=== PATIENT | female | born 1995 | race Caucasian/White ===

== ENCOUNTER 2016-12-27 12:43 | Outpatient (CLI) | payer OTHER ==
[2016-12-27 17:47] LABS: BASOPHILS % (AUTO) 0.7 %; EOSINOPHILS # (AUTO) 0.1 10^3/uL (0.0-0.7); EOSINOPHILS % (AUTO) 2.9 %; HCT - HEMATOCRIT 38.5 % (37.0-47.0); HGB - HEMOGLOBIN 13.1 g/dL (12.0-16.0); LYMPHOCYTES # (AUTO) 1.9 10^3/uL (1.5-3.5); LYMPHOCYTES % (AUTO) 40.9 %; MEAN CORPUSCULAR HEMOGLOBIN 31.3 pg (27.0-31.0); MEAN CORPUSCULAR VOLUME 92.3 fL (81.0-99.0); MEAN PLATELET VOLUME 7.9 fL (7.9-10.8); MONOCYTES # (AUTO) 0.4 10^3/uL (0.0-1.0); NEUTROPHILS # (AUTO) 2.1 10^3/uL (1.5-6.6); NEUTROPHILS % (AUTO) 46.5 %; RED BLOOD COUNT 4.17 10^6/uL (4.20-5.40); UNCORRECTED WHITE BLOOD COUNT 4.6 x10^3/uL; WHITE BLOOD COUNT 4.6 x10^3/uL (4.8-10.8)
[2016-12-27 17:56] LABS: ALBUMIN/GLOBULIN RATIO 1.9 (1.0-2.2); BILIRUBIN,TOTAL 0.7 mg/dL (0.2-1.0); BUN - BLOOD UREA NITROGEN 13 mg/dL (6-20); CARBON DIOXIDE - CO2 29 mmol/L (21-32); CHLORIDE 103 mmol/L (101-111); CHOLESTEROL 174 mg/dL; CREATININE 0.8 mg/dL (0.4-1.0); GFR - MDRD 89 (>89); GLUCOSE 93 mg/dL (70-100); HDL CHOLESTEROL 87 mg/dL; LDL/HDL RATIO 0.9 (<4.4); POTASSIUM 4.1 mmol/L (3.5-5.0); SODIUM 140 mmol/L (135-145); TOTAL PROTEIN 7.3 g/dL (6.7-8.2); TRIGLYCERIDES 63 mg/dL; VLDL CHOLESTEROL 13 mg/dL
== END 2016-12-27 12:44 ==
LOC: LAB.F 12:43
PROVIDERS: ATTEND Internal Medicine
DX: Z00.00 Encounter for general adult medical examination without abnormal findings (principal); D64.9 Anemia, unspecified
CPT/HCPCS: 36415; 80053; 80061; 80175; 82306; 85025

== ENCOUNTER 2017-08-24 09:21 | Emergency (ER) | payer OTHER ==
[2017-08-24 09:27] VITALS: BP 107/66
[2017-08-24 09:41] LABS: HCG UR QUAL POSITIVE
--- NOTE | 2017-08-24 09:56 | ED Physician Documentation ---
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 She states she has had some breast tenderness for about 2 months and that she does not get regular periods. She did cut her dose of lamotrigine and half last night and her parents are getting ready to leave on a trip to [place] in 2 days time. She believes she will not have an issue with substance abuse while she is . Review of Systems Constitutional: denies: Fever Eyes: denies: Decreased vision Ears: denies: Ear pain Nose: denies: Congestion Throat: denies: Sore throat Cardiac: denies: Chest pain / pressure Respiratory: denies: Dyspnea, Cough GI: reports: Nausea. denies: Abdominal Pain, Vomiting, Constipation, Diarrhea : denies: Dysuria, Frequency Skin: denies: Rash Musculoskeletal: denies: Neck pain, Back pain, Extremity pain Neurologic: denies: Generalized weakness, Focal weakness, Numbness PD PAST MEDICAL HISTORY - Past Medical History Past Medical History: Yes Psych: Depression, Bipolar disorder - Past Surgical History Past Surgical History: Yes General: Appendectomy HEENT: Tonsil/Adenoidectomy - Present Medications Home Medications: Ambulatory Orders Medication Instructions Recorded Confirmed Lamotrigine [Lamotrigine Odt] 400 mg PO DAILY 08/24/17 - Allergies Allergies/Adverse Reactions: Allergies Allergy/AdvReac Type Severity Reaction Status Date / Time No Known Drug Allergies Allergy Verified 08/24/17 09:27 - Social History Does the pt smoke?: Yes Smoking Status: Current every day smoker Does the pt drink ETOH?: Yes ETOH Use: Beer Does the pt have substance abuse?: Yes Substance Use and Type: Marijuana PD ED PE NORMAL - Vitals Vital signs reviewed: Yes (normal ) - General General: Alert and oriented X 3, No acute distress, Well developed/nourished - HEENT HEENT: Atraumatic, PERRL, EOMI - Neck Neck: Supple, no meningeal sign, No bony TTP - Cardiac Cardiac: RRR, No murmur - Respiratory Respiratory: No respiratory distress, Clear bilaterally - Abdomen Abdomen: Soft, Non tender - Back Back: No CVA TTP, No spinal TTP - Derm Derm: Normal color, Warm and dry, No rash - Extremities Extremities: No deformity, No edema - Neuro Neuro: Alert and oriented X 3, comptometrist 2-12 intact, No motor deficit, No sensory deficit, Normal speech Eye Opening: Spontaneous Motor: Obeys Commands Verbal: Oriented GCS Score: 15 - Psych Psych: Normal mood, Normal affect Results - Vitals Vitals: Vital Signs - 24 hr 08/24/17 09:25 Temperature 36.7 C Heart Rate 70 Respiratory 18 Rate Blood Pressure 107/66 O2 Saturation 100 Oxygen O2 Source Room air - Labs Labs: Laboratory Tests 08/24/17 08/24/17 09:30 09:32 Urine Color YELLOW Urine Clarity CLEAR Urine pH 8.5 H Ur Specific [place] 1.010 1.010 Urine Protein NEGATIVE Urine Glucose (UA) NEGATIVE Urine Ketones NEGATIVE Urine Occult Blood NEGATIVE Urine Nitrite NEGATIVE Urine Bilirubin NEGATIVE Urine Urobilinogen N Ur Leukocyte Esterase NEGATIVE Ur Microscopic Review NOT INDICATED Urine Culture Comments NOT INDICATED Urine HCG, Qual POSITIVE Procedures - Bedside sono Bedside sono by EMP: With use of bedside ultrasound the pelvis is imaged a viable 14 week fetus with a heart rate of 156 is imaged. There are no obvious abnormalities. PD MEDICAL DECISION MAKING - ED course Complexity details: reviewed results, re-evaluated patient, considered differential, d/w patient, d/w family ED course: 22-year-old female with history of bipolar disorder on lamotrigine is found to be approximately 14 weeks. She does appear to have a viable fetus. Departure - Departure Disposition: 01 Home, Self Care Clinical Impression: First trimester Condition: Stable Instructions: ED Care Follow-Up: Emily Phipps PA-C [Primary Care Provider] - [facility] [Provider Group] Comments: Continue on the reduced dose of lamictal and follow up with Emily Phipps about further reduction in the dose. Start taking a pre- vitamin with folate in it.
[2017-08-24 10:44] LABS: CLARITY,URINE CLEAR (CLEAR)
[2017-08-24 10:45] LABS: BILIRUBIN,URINE NEGATIVE (NEGATIVE); GLUCOSE, URINE (UA) NEGATIVE (NEGATIVE); KETONES,URINE (UA) NEGATIVE (NEGATIVE); LEUKOCYTE ESTERASE, URINE NEGATIVE (NEGATIVE); NITRITE,URINE NEGATIVE (NEGATIVE); OCCULT BLOOD,URINE NEGATIVE (NEGATIVE); PH,URINE 8.5 PH (5.0-7.5); PROTEIN,URINE NEGATIVE (NEGATIVE); UROBILINOGEN,URINE N E.U./dL (NORMAL)
== END 2017-08-24 11:01 | disposition home or self-care (01) ==
LOC: ED 09:21
DX: O26.891 Other specified pregnancy related conditions, first trimester (principal); R11.0 Nausea; O99.331 Smoking (tobacco) complicating pregnancy, first trimester; Z3A.14 14 weeks gestation of pregnancy; F31.9 Bipolar disorder, unspecified
CPT/HCPCS: 81001; 81003; 81025; 87086; 99282; 99283

== ENCOUNTER 2017-08-28 14:50 | Outpatient (CLI) | payer OTHER ==
[2017-08-28 15:23] LABS: BILIRUBIN,URINE NEGATIVE (NEGATIVE); GLUCOSE, URINE (UA) NEGATIVE (NEGATIVE); KETONES,URINE (UA) NEGATIVE (NEGATIVE); LEUKOCYTE ESTERASE, URINE TRACE (NEGATIVE); NITRITE,URINE NEGATIVE (NEGATIVE); OCCULT BLOOD,URINE NEGATIVE (NEGATIVE); PROTEIN,URINE NEGATIVE (NEGATIVE); UROBILINOGEN,URINE 0.2 (NORMAL) E.U./dL (NORMAL)
[2017-08-28 15:24] LABS: BASOPHILS % (AUTO) 0.4 %; EOSINOPHILS # (AUTO) 0.1 10^3/uL (0.0-0.7); EOSINOPHILS % (AUTO) 0.8 %; HGB - HEMOGLOBIN 11.8 g/dL (12.0-16.0); LYMPHOCYTES # (AUTO) 1.8 10^3/uL (1.5-3.5); LYMPHOCYTES % (AUTO) 19.9 %; MEAN CORPUSCULAR HEMOGLOBIN 30.8 pg (27.0-31.0); MEAN CORPUSCULAR HGB CONC 34.2 g/dL (32.0-36.0); MONOCYTES # (AUTO) 0.5 10^3/uL (0.0-1.0); MONOCYTES % (AUTO) 5.5 %; NEUTROPHILS # (AUTO) 6.5 10^3/uL (1.5-6.6); NEUTROPHILS % (AUTO) 73.4 %; PLT - PLATELET COUNT 162 10^3/uL (130-450); RED BLOOD COUNT 3.85 10^6/uL (4.20-5.40); RED CELL DISTRIBUTION WIDTH 12.4 % (12.0-15.0); WHITE BLOOD COUNT 8.8 x10^3/uL (4.8-10.8)
[2017-08-28 15:34] LABS: BACTERIA,URINE Rare /HPF (None Seen); CLARITY,URINE CLEAR (CLEAR); MUCUS,URINE Few Strands; RBC,URINE 0-5 /HPF (0-5); SQUAMOUS EPITHELIAL CELL,UR MANY Squamous (<= Few)
[2017-08-29 14:09] LABS: HIV AG/AB 4TH GEN NON-REACTIVE (NON-REACTIVE)
[2017-08-29 15:47] LABS: HEPATITIS B SURFACE ANTIGEN NON-REACTIVE (NON-REACTIVE); HEPATITIS C ANTIBODY NON-REACTIVE (NON-REACTIVE)
== END 2017-08-28 14:51 | disposition home or self-care (01) ==
LOC: LAB 14:50
PROVIDERS: ATTEND Nurse Practitioner Obstetrics & Gynecology
DX: Z36.9 Encounter for antenatal screening, unspecified (principal)
CPT/HCPCS: 36415; 80306; 81001; 81599; 85025; 86592; 86762; 86803; 86850; 86900; 86901; 87340; 87389

== ENCOUNTER 2017-08-28 15:56 | Outpatient (CLI) | payer OTHER ==
[2017-08-29 15:22] LABS: MUDS CUTOFF CONCENTRATIONS CUTOFF CONC BELOW:
[2017-08-29 15:41] LABS: AMPHETAMINE SCREEN,URINE NEGATIVE (NEGATIVE); BENZODIAZEPINES SCREEN, URINE NEGATIVE (NEGATIVE); COCAINE SCREEN URINE NEGATIVE (NEGATIVE); METHADONE SCREEN, URINE NEGATIVE (NEGATIVE); METHAMPHETAMINES SCREEN, URINE NEGATIVE (NEGATIVE); OPIATE SCREEN, URINE NEGATIVE (NEGATIVE); OXYCODONE SCREEN, URINE NEGATIVE (NEGATIVE); PROPOXYPHENE SCREEN, URINE NEGATIVE (NEGATIVE); TRICYCLIC ANTIDEPRESSANT,URINE NEGATIVE (NEGATIVE)
== END 2017-08-28 23:59 | disposition home or self-care (01) ==
LOC: LAB.R 15:56
PROVIDERS: ATTEND Nurse Practitioner Obstetrics & Gynecology
DX: Z36.9 Encounter for antenatal screening, unspecified (principal)
CPT/HCPCS: 80306

== ENCOUNTER 2017-09-02 20:54 | Outpatient (CLI) | payer OTHER ==
--- NOTE | 2017-09-04 10:38 | Ultrasound Report ---
OB LIMITED ULTRASOUND: 09/02/2017 COMPARISON: No comparison. INDICATION: Screening for macrosomia. TECHNIQUE: Sonographic evaluation of single intrauterine using transabdominal technique. LAST MENSTRUAL PERIOD 05/21/2017 Clinical Age 14 weeks 6 days LMP US Age 14 weeks 4 days current ultsd EFW Hadlock 7 grams EFW% Hadlock -- Heart Rate 157 bpm EDC 02/25/2018 US EDC 02/27/2018 BPD Hadlock 15 weeks 1 day; Mean mm 29 HC Hadlock 14 weeks 5 days; Mean mm 101 AC Hadlock 14 weeks 4 days; Mean mm 82 FL Hadlock 14 weeks 1 day; Mean mm 14 Presentation cephalic Placental Location anterior Cervical Length 3.2 cm Amniotic Fluid 8.84 cm; subjectively normal; MVP 2.9 cm FINDINGS Single viable intrauterine . Placental location is anterior without evidence of placenta previa. Cervix appears long and closed, measuring 3.2 cm. bladder, anterior abdominal wall cord insertion, upper extremities, and lower extremities are shown. Bilateral adnexa appear unremarkable. The ovaries are not discretely seen. IMPRESSION: SINGLE LIVE INTRAUTERINE DETAILED ABOVE WITH ESTIMATED GESTATIONAL AGE 14 WEEKS 6 DAYS BY LMP. SIZE CONCORDANT WITH DATES. RECOMMEND ANATOMY SCREENING AT AGE 20 WEEKS. TD: 09/03/2017 12:10 [facility]
== END 2017-09-02 20:55 | disposition home or self-care (01) ==
LOC: DI 20:54
PROVIDERS: ATTEND Nurse Practitioner Obstetrics & Gynecology
DX: Z36.88 Encounter for antenatal screening for fetal macrosomia (principal)
CPT/HCPCS: 76815

== ENCOUNTER 2017-09-07 01:00 | Emergency (ER) | payer OTHER ==
[2017-09-07] MEDS ORDERED: SODIUM CHLORIDE 0.9% 1,000 ML IV ONE ×2 (01:22→02:05)
[2017-09-07] MEDS ORDERED: ONDANSETRON 4 MG/2 ML VIAL IVP STA (01:22)
[2017-09-07] MEDS ORDERED: ACETAMINOPHEN 500 MG TABLET PO STA (01:39)
[2017-09-07 01:51] LABS: BILIRUBIN,URINE NEGATIVE (NEGATIVE); GLUCOSE, URINE (UA) NEGATIVE (NEGATIVE); KETONES,URINE (UA) 40 mg/dL (NEGATIVE); LEUKOCYTE ESTERASE, URINE NEGATIVE (NEGATIVE); NITRITE,URINE NEGATIVE (NEGATIVE); OCCULT BLOOD,URINE NEGATIVE (NEGATIVE); PH,URINE 5.5 PH (5.0-7.5); PROTEIN,URINE NEGATIVE (NEGATIVE); UROBILINOGEN,URINE 0.2 (NORMAL) E.U./dL (NORMAL)
[2017-09-07] MEDS ORDERED: ACETAMINOPHEN 325 MG TABLET PO STA (01:56)
[2017-09-07 01:57] LABS: CLARITY,URINE CLEAR (CLEAR)
--- NOTE | 2017-09-07 02:10 | ED Physician Documentation ---
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 Patient states that throughout the day today she has had multiple episodes of vomiting (5) and she has developed a headache. Patient had OB follow up earlier this week with viable IUP. Review of Systems Constitutional: denies: Fever, Chills Eyes: reports: Reviewed and negative Ears: reports: Reviewed and negative Nose: reports: Reviewed and negative Throat: reports: Reviewed and negative Cardiac: denies: Chest pain / pressure, Palpitations Respiratory: denies: Cough, Wheezing GI: reports: Abdominal Pain, Nausea, Vomiting. denies: Constipation, Diarrhea : denies: Dysuria, Frequency, Hesitancy Skin: denies: Rash, Lesions Neurologic: reports: Headache. denies: Head injury Immunocompromised: denies: Immunocompromised PD PAST MEDICAL HISTORY - Past Medical History Past Medical History: Yes Psych: Depression, Bipolar disorder - Past Surgical History Past Surgical History: Yes General: Appendectomy HEENT: Tonsil/Adenoidectomy - Present Medications Home Medications: Ambulatory Orders Medication Instructions Recorded Confirmed Lamotrigine [Lamotrigine Odt] 200 mg PO DAILY 08/24/17 Metronidazole [Flagyl] 1 tab PO BID 09/07/17 09/07/17 Ondansetron Odt [Zofran] 4 mg TL Q6H PRN #20 tablet 09/07/17 - Allergies Allergies/Adverse Reactions: Allergies Allergy/AdvReac Type Severity Reaction Status Date / Time No Known Drug Allergies Allergy Verified 09/07/17 01:17 - Social History Does the pt smoke?: Yes Smoking Status: Current every day smoker Does the pt drink ETOH?: Yes Does the pt have substance abuse?: Yes - Immunizations Immunizations are current?: Yes PD ED PE NORMAL - Vitals Vital signs reviewed: Yes - General General: Alert and oriented X 3, No acute distress - HEENT HEENT: Atraumatic - Neck Neck: Supple, no meningeal sign - Cardiac Cardiac: RRR, No murmur - Respiratory Respiratory: No respiratory distress - Abdomen Abdomen: Soft, Non distended - Derm Derm: Warm and dry - Extremities Extremities: No deformity - Neuro Neuro: Alert and oriented X 3, surgery nurse 2-12 intact, No motor deficit, No sensory deficit, Normal speech Eye Opening: Spontaneous - Psych Psych: Normal mood Results - Vitals Vitals: Vital Signs - 24 hr 09/07/17 09/07/17 09/07/17 01:10 02:03 02:30 Temperature 36.8 C Heart Rate 94 69 72 Respiratory 16 16 15 Rate Blood Pressure 95/53 L 98/49 L 91/44 L O2 Saturation 100 100 100 Oxygen O2 Source Room air - Labs Labs: Laboratory Tests 09/07/17 01:30 Urine Color YELLOW Urine Clarity CLEAR Urine pH 5.5 Ur Specific [place] 1.010 Urine Protein NEGATIVE Urine Glucose (UA) NEGATIVE Urine Ketones 40 H Urine Occult Blood NEGATIVE Urine Nitrite NEGATIVE Urine Bilirubin NEGATIVE Urine Urobilinogen 0.2 (NORMAL) Ur Leukocyte Esterase NEGATIVE Ur Microscopic Review NOT INDICATED Urine Culture Comments NOT INDICATED Procedures - Bedside sono Bedside sono by EMP: pelvic-viable iup with fhr 156 PD MEDICAL DECISION MAKING - ED course Complexity details: reviewed old records, reviewed results, re-evaluated patient , considered differential, d/w patient, d/w family ED course: Patient was seen and examined at bedside. IV access was gained. Patient was treated with zofran and 2 liter fluid bolus. patient had taken some tylenol and was treated with an additional 325 mg. bedside ultrasound was performed and showed a viable IUP. patient required no further work up at this time and was stable for discharge with outpatient follow up. Departure - Departure Disposition: 01 Home, Self Care Clinical Impression: Vomiting affecting Condition: Good Instructions: ED Preg Morning Sickness Follow-Up: Emily Phipps PA-C [Primary Care Provider] - Prescriptions: Ondansetron Odt [Zofran] 4 mg TL Q6H PRN #20 tablet PRN Reason: Nausea / Vomiting Comments: Your diagnostics today revealed mild dehydration but no infection and a well appearing fetus. it is important to stay hydrated. you can take the zofran as needed for nausea and tylenol for pain. You should follow up with your doctor if your symptoms persist. You may return to the emergency deaprtment at any time for new, worsening or uncontrollable symptoms.
[2017-09-07 03:43] VITALS: BP 100/65
== END 2017-09-07 03:45 | disposition home or self-care (01) ==
LOC: ED 01:00
DX: O21.0 Mild hyperemesis gravidarum (principal); O99.282 Endocrine, nutritional and metabolic diseases complicating pregnancy, second trimester; E86.0 Dehydration; O99.332 Smoking (tobacco) complicating pregnancy, second trimester; Z3A.15 15 weeks gestation of pregnancy
CPT/HCPCS: 81003; 96361; 96374; 99284; A9270; 81001; 87086

== ENCOUNTER 2017-10-17 12:16 | Outpatient (CLI) | payer OTHER ==
--- NOTE | 2017-10-21 16:00 | Ultrasound Report ---
OB ULTRASOUND: 10/17/2017 CLINICAL INDICATION: anatomy. TECHNIQUE: Real-time scanning was performed with sales representative uniforms static images obtained. LAST MENSTRUAL PERIOD: unknown Clinical Age: 21 weeks 0 days US Age: 20 weeks 6 days EFW Hadlock: 376 grams EFW% Hadlock: -- Heart Rate: 140 bpm EDC: 02/27/2018 US EDC: 02/28/2018 BPD Hadlock: 21 weeks 0 days; Mean mm 50 HC Hadlock: 20 weeks 5 days; Mean mm 183 AC Hadlock: 21 weeks 0 days; Mean mm 158 FL Hadlock: 20 weeks 4 days; Mean mm 34 Presentation: variable Placental Location: anterior Cervical Length: TA 5.6 cm Amniotic Fluid: subjectively normal; MVP 4.1 cm FINDINGS: There is a single viable intrauterine gestation, in variable position. heart rate is 140 BPM. The placenta is anterior, without evidence of previa. Amniotic fluid volume is normal, with a deepest pocket of 4.1 cm. By size, the fetus measures 20 weeks 6 days (21 weeks 0 days by initial sonogram). ANATOMY The following anatomic structures were visualized and appear normal: The intracranial contents, including the ventricles and posterior fossa; the lips and orbits; the spine; the heart, including 4 chamber view and outflow tracts, and diaphragm; the abdominal contents, including the stomach, the bilateral kidneys, and urinary bladder, as well as a normal 3 vessel cord insertion; 4 limbs. No free fluid or adnexal lesion is appreciated. IMPRESSION: SINGLE VIABLE INTRAUTERINE GESTATION, WITH EXPECTED GROWTH FROM PREVIOUS SONOGRAM. NORMAL ANATOMIC SURVEY. TD: 10/17/2017 17:21 MTDD
== END 2017-10-17 12:17 | disposition home or self-care (01) ==
LOC: DI 12:16
PROVIDERS: ATTEND Nurse Practitioner Obstetrics & Gynecology
DX: Z36.9 Encounter for antenatal screening, unspecified (principal)
CPT/HCPCS: 76811

== ENCOUNTER 2017-11-19 12:24 | Outpatient (CLI) | payer OTHER ==
[2017-11-19 13:44] LABS: HGB - HEMOGLOBIN 10.3 g/dL (12.0-16.0); MEAN CORPUSCULAR HEMOGLOBIN 30.7 pg (27.0-31.0); MEAN CORPUSCULAR HGB CONC 34.7 g/dL (32.0-36.0); MEAN CORPUSCULAR VOLUME 88.5 fL (81.0-99.0); MEAN PLATELET VOLUME 7.8 fL (7.9-10.8); RED BLOOD COUNT 3.37 10^6/uL (4.20-5.40); RED CELL DISTRIBUTION WIDTH 12.7 % (12.0-15.0)
== END 2017-11-19 12:25 | disposition home or self-care (01) ==
LOC: LAB 12:24
PROVIDERS: ATTEND Nurse Practitioner Obstetrics & Gynecology
DX: Z36.9 Encounter for antenatal screening, unspecified (principal)
CPT/HCPCS: 36415; 82950; 85027; 86850

== ENCOUNTER 2017-12-19 16:54 | Outpatient (CLI) | payer OTHER | END 2017-12-19 16:55 | disposition critical access hospital (66) | LOC: EMS 16:54 | PROVIDERS: ATTEND Surgery | DX: R10.9 Unspecified abdominal pain (principal) | CPT/HCPCS: A0425; A0427 ==

== ENCOUNTER 2017-12-19 17:29 | Outpatient (CLI) | payer OTHER ==
[2017-12-19 18:13] LABS: BILIRUBIN,URINE NEGATIVE (NEGATIVE); GLUCOSE, URINE (UA) NEGATIVE (NEGATIVE); KETONES,URINE (UA) NEGATIVE (NEGATIVE); LEUKOCYTE ESTERASE, URINE NEGATIVE (NEGATIVE); NITRITE,URINE NEGATIVE (NEGATIVE); OCCULT BLOOD,URINE NEGATIVE (NEGATIVE); PROTEIN,URINE NEGATIVE (NEGATIVE); UROBILINOGEN,URINE 0.2 (NORMAL) E.U./dL (NORMAL)
[2017-12-19 18:13] LABS: BASOPHILS % (AUTO) 0.4 %; EOSINOPHILS # (AUTO) 0.1 10^3/uL (0.0-0.7); EOSINOPHILS % (AUTO) 1.2 %; HGB - HEMOGLOBIN 10.9 g/dL (12.0-16.0); LYMPHOCYTES % (AUTO) 20.5 %; MEAN CORPUSCULAR HEMOGLOBIN 30.6 pg (27.0-31.0); MEAN CORPUSCULAR HGB CONC 34.4 g/dL (32.0-36.0); MEAN PLATELET VOLUME 7.8 fL (7.9-10.8); MONOCYTES # (AUTO) 0.7 10^3/uL (0.0-1.0); MONOCYTES % (AUTO) 7.1 %; NEUTROPHILS # (AUTO) 6.9 10^3/uL (1.5-6.6); NEUTROPHILS % (AUTO) 70.8 %; PLT - PLATELET COUNT 224 10^3/uL (130-450); RED BLOOD COUNT 3.57 10^6/uL (4.20-5.40); RED CELL DISTRIBUTION WIDTH 12.7 % (12.0-15.0); WHITE BLOOD COUNT 9.7 x10^3/uL (4.8-10.8)
[2017-12-19 18:26] LABS: BACTERIA,URINE None Seen /HPF (None Seen); CLARITY,URINE CLEAR (CLEAR); RBC,URINE None Seen /HPF (0-5); SQUAMOUS EPITHELIAL CELL,UR FEW Squamous (<= Few)
[2017-12-19] MEDS ORDERED: SODIUM CHLORIDE 0.9% 1,000 ML IV ONE (18:28)
[2017-12-19] MEDS ORDERED: LACTATED RINGERS 1,000 ML IV SCH (19:00)
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
[2017-12-19] MEDS ORDERED: TERBUTALINE 1 MG/ML VIAL SUBQ ONE (20:14)
--- NOTE | 2017-12-19 20:28 | Ultrasound Report ---
Procedure Date: 12/19/2017 Accession Number: [id number] / [id number] Procedure: US - OB Limited CPT Code: FULL RESULT: EXAM: LIMITED OBSTETRICAL ULTRASOUND EXAM DATE: 12/19/2017 07:25 PM. CLINICAL HISTORY: Pelvic pain. 22-year-old female. Check cervical length only. COMPARISON: 10/17/2017. TECHNIQUE: Real-time sonographic evaluation of the fetus performed by the coverage specialist rn. Multiple technical account representative static images were saved for review. DATING: Established EGA 30 weeks 0 days with CAIT 02/27/2018. GENERAL EVALUATION [place] . Cardiac activity: 161 bpm. Presentation: Cephalic. Placenta: Not assessed. Amniotic fluid: Not assessed. ANATOMY Not assessed. MATERNAL STRUCTURES Cervix closed and 2.7 cm in length on translabial scan. IMPRESSION: 1. [place] live intrauterine in cephalic position with gestational age 30 weeks 0 days based on established due date. 2. Cervix closed and 2.7 cm in length. RADIA
[2017-12-19 20:40] VITALS: BP 112/56
[2017-12-19] MEDS ORDERED: ALPRAZolam 0.25 MG TABLET PO ONE (21:23)
== END 2017-12-19 21:55 | disposition home or self-care (01) ==
LOC: WFO 17:29 → FBP 17:31 → WFO 21:55
PROVIDERS: ATTEND Obstetrics & Gynecology
DX: O26.893 Other specified pregnancy related conditions, third trimester (principal); R10.31 Right lower quadrant pain; R10.32 Left lower quadrant pain; O99.343 Other mental disorders complicating pregnancy, third trimester; F31.9 Bipolar disorder, unspecified; F41.9 Anxiety disorder, unspecified; Z3A.30 30 weeks gestation of pregnancy; Z63.0 Problems in relationship with spouse or partner; Z79.899 Other long term (current) drug therapy
CPT/HCPCS: 36415; 76815; 81001; 85025; 96360; 96361; 96372; 99214; A9270; J7120; 87086

== ENCOUNTER 2018-01-21 14:47 | Outpatient (CLI) | payer OTHER ==
[2018-01-21 15:24] LABS: HGB - HEMOGLOBIN 10.3 g/dL (12.0-16.0); MEAN CORPUSCULAR HEMOGLOBIN 30.8 pg (27.0-31.0); MEAN CORPUSCULAR HGB CONC 34.2 g/dL (32.0-36.0); MEAN CORPUSCULAR VOLUME 90.2 fL (81.0-99.0); MEAN PLATELET VOLUME 8.5 fL (7.9-10.8); RED BLOOD COUNT 3.36 10^6/uL (4.20-5.40)
== END 2018-01-21 14:48 | disposition home or self-care (01) ==
LOC: LAB 14:47
PROVIDERS: ATTEND Nurse Practitioner Obstetrics & Gynecology
DX: O99.013 Anemia complicating pregnancy, third trimester (principal)
CPT/HCPCS: 36415; 85027

== ENCOUNTER 2018-01-29 08:00 | Outpatient (CLI) | payer OTHER | END 2018-01-29 08:01 | disposition home or self-care (01) | LOC: LAB.R 08:00 | PROVIDERS: ATTEND Nurse Practitioner Obstetrics & Gynecology | DX: Z36.85 Encounter for antenatal screening for Streptococcus B (principal) | CPT/HCPCS: 87081 ==

== ENCOUNTER 2018-02-26 14:54 | Inpatient (IN) | payer OTHER ==
[2018-02-26] MEDS ORDERED: ONDANSETRON 4 MG/2 ML VIAL IVP PRN (19:33)
[2018-02-26] MEDS ORDERED: fentaNYL 100 MCG/2 ML VIAL IVP PRN (19:33)
[2018-02-26] MEDS ORDERED: SODIUM CHLORIDE FLUSH 0.9% 10 ML SYRINGE IVP PRN (19:33)
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
[2018-02-26 19:57] LABS: BASOPHILS # (AUTO) 0.1 10^3/uL (0.0-0.1); BASOPHILS % (AUTO) 0.4 %; EOSINOPHILS % (AUTO) 0.3 %; HGB - HEMOGLOBIN 11.7 g/dL (12.0-16.0); LYMPHOCYTES # (AUTO) 2.2 10^3/uL (1.5-3.5); LYMPHOCYTES % (AUTO) 14.7 %; MEAN CORPUSCULAR HEMOGLOBIN 30.1 pg (27.0-31.0); MEAN CORPUSCULAR HGB CONC 34.4 g/dL (32.0-36.0); MEAN CORPUSCULAR VOLUME 87.6 fL (81.0-99.0); MONOCYTES # (AUTO) 0.8 10^3/uL (0.0-1.0); MONOCYTES % (AUTO) 5.2 %; NEUTROPHILS # (AUTO) 11.6 10^3/uL (1.5-6.6); NEUTROPHILS % (AUTO) 79.4 %; PLT - PLATELET COUNT 242 10^3/uL (130-450); RED CELL DISTRIBUTION WIDTH 13.4 % (12.0-15.0); WHITE BLOOD COUNT 14.7 x10^3/uL (4.8-10.8)
[2018-02-26] MEDS ORDERED: ACETAMINOPHEN 325 MG TABLET PO SCH (20:00)
[2018-02-26] MEDS ORDERED: OXYTOCIN/SODIUM CHLORIDE 500 ML IV SCH (20:00)
[2018-02-26] MEDS: LACTATED RINGERS 1,000 ML IV SCH (22:04)
[2018-02-26] MEDS ORDERED: fent/BUPIV 2 MCG/0.125% 250 ML EP ONE (23:08)
--- NOTE | 2018-02-27 00:05 | ANESTHESIA ---
Pre-Anesthesia VS, & Labs - Diagnosis Active labor - Procedure Continuous labor epidural Vital Signs: Temp Pulse Resp BP Pulse Ox 36.8 C 70 18 112/75 100 02/26/18 16:06 02/26/18 16:06 02/26/18 16:06 02/26/18 16:06 02/26/18 16:06 Height 6 ft Weight (kg) 95.708 kg Body Mass Index 23.0 - NPO Other (sandwich less than 6 hours ago) - Is Patient ?: Yes - Lab Results Lab results reviewed: Yes Fish Bones: 02/26/18 19:45 Home Medications and Allergies Home Medications: Ambulatory Orders Medication Instructions Recorded Confirmed Lamotrigine [Lamotrigine Odt] 200 mg PO DAILY 08/24/17 Metronidazole [Flagyl] 1 tab PO BID 09/07/17 09/07/17 Ondansetron Odt [Zofran] 4 mg TL Q6H PRN #20 tablet 09/07/17 Allergies/Adverse Reactions: Allergies Allergy/AdvReac Type Severity Reaction Status Date / Time No Known Drug Allergies Allergy Verified 09/07/17 01:17 Anes History & Medical History - Anesthetic History Anesthesia Complications: reports: No previous complications Family history of Anesthesia Complications: Denies Family history of Malignant Hyperthermia: Denies - Medical History Cardiovascular: reports: None Pulmonary: reports: None Gastrointestinal: reports: None Urinary: reports: None Neuro: reports: None Musculoskeletal: reports: None Endocrine/Autoimmune: reports: None Blood Disorders: reports: None Skin: reports: None Smoking Status: Former smoker Psychosocial: reports: No issues indicated - Surgical History General: Appendectomy Eyes Ears Nose Throat (EENT): Tonsil/Adenoidectomy - Obstetrical History : 1 Parity: 0 Events: positive: None Complications: positive: None Exam General: Alert, Oriented x3 Dental: WNL Mouth Opening: Greater than 4 Fingerbreadths Neck Mobility: Normal Mallampati classification: I Thyromental Distance: greater than 6 cm Respiratory: Lungs clear Cardiovascular: Regular rate Mental/Cognitive Status: Alert/Oriented X3 Cognitive Status: Within normal limits Plan Anesthesia Type: Epidural Consent for Procedure(s) Verified and Reviewed: Yes Code Status: Attempt Resuscitation ASA classification: 2-Mild systemic disease Is this case an emergency?: Yes
--- NOTE | 2018-02-27 00:48 | PROVIDER PROGRESS NOTE ---
Labor Progress Note - Uterine Monitoring Uterine Monitoring Mode: positive: External toco Contraction Frequency (min/apart): 4-6 Contraction Intensity: positive: Moderate Uterine Resting Tone: positive: Soft - Monitoring Monitor Mode: positive: External ultrasound Heart Rate Baseline: 120 Heart Rate Variability: positive: Moderate (6-25 bmp) Accelerations: positive: Present, 15x15 Decelerations: positive: None Strip Review: positive: Category I - Vaginal Exam Dilation (in cm): 5 Effacement (%): 95 Station: -2 Cervical Position: Anterior - Labor Progress Note Labor Progress Note/Additional Text: S: Pt is comfortable with epidural. Feeling moderate nausea without vomiting and requests anti-nausea medication which improves her nausea following administration. Mood is pleasant. She is looking forward to taking a nap. FOB Lyndon and mother supportive at the bedside. O: BP 98/45 and patient symptomatic - Head of bed decreased and fluid bolus initiated. BP improved to 105/61, RR 20, HR 87; SVE 5/95/-2, anterior position, soft, vertex. Contractions palpate moderate every 2-6 minutes lasting 60-90 seconds. A: 22yo @ 40.2 wks gestation by 14.6wk U/S Augmentation of labor with AROM and initiation of pitocin per protocol GBS negative P: Continuous monitoring Titration of pitocin per protocol Encouraged position changes with peanut ball Anticipate spontaneous vaginal delivery. Reevaluate in 2 hours or sooner PRN.
[2018-02-27] MEDS ORDERED: SODIUM CHLORIDE FLUSH 0.9% 10 ML SYRINGE IVP SCH (01:00)
[2018-02-27] MEDS: LACTATED RINGERS 1,000 ML IV SCH ×2 (01:53→06:19)
--- NOTE | 2018-02-27 05:27 | PROVIDER PROGRESS NOTE ---
Labor Progress Note - Uterine Monitoring Uterine Monitoring Mode: positive: External toco Contraction Frequency (min/apart): 2-4 Contraction Intensity: positive: Strong Uterine Resting Tone: positive: Soft - Monitoring Monitor Mode: positive: External ultrasound Heart Rate Baseline: 130 Heart Rate Variability: positive: Moderate (6-25 bmp) Accelerations: positive: Present, 15x15 Decelerations: positive: Late, Variable, Intermittent (<50% x20 min) Strip Review: positive: Category II - Vaginal Exam Dilation (in cm): 10 Effacement (%): 100 Station: 0 - Labor Progress Note Labor Progress Note/Additional Text: S: Pt feeling intense urge to push. She is experiencing heightened anxiety and reports fear of discomfort when pushing. Reports the shaking associated with advanced dilation is contributing to her anxiety. Using her OPERATION SPECIALIST button frequently due to discomfort. FOB Lyndon, father, and mother supportive at the bedside. O: BP 105/76, HR 96, RR 18. SVE c/c/-1 with spontaneous maternal pushing effort progression to 0 station noted. DAISHA position. FHR baseline 130s, minimal to moderate variability, no accels, occasional variable decelerations. Contractions palpate firm every 2-3 minutes with soft resting tone Pitocin @ 1 O2 applied via facemask per maternal request A: 22yo @ 14.6wks gestation Active labor AROM x 5 hours GBS neg P: Continuous monitoring Continue pitocin per protocol for augmentation of labor Pt requests to labor down for 20 minutes Anticipate spontaneous vaginal delivery.
[2018-02-27] MEDS ORDERED: WITCH HAZEL/GLYCERIN 1 EACH MED..PAD TOP PRN (07:21)
[2018-02-27] MEDS ORDERED: OXYTOCIN/SODIUM CHLORIDE 250 ML IV ONE (07:21)
--- NOTE | 2018-02-27 07:21 | DELIVERY NOTE ---
Delivery Note - Labor Labor: positive: Augmented by ARM, Augmented by oxytocin - Delivery Method Delivery Method: positive: Spontaneous vaginal delivery - Presentation Presentation: positive: Vertex, ALESIA - right occiput anterior - Nuchal Cord Nuchal Cord: positive: None - Amniotic Fluid Description Amniotic Fluid Description: positive: Clear - Episiotomy Type Episiotomy Type: positive: None - Laceration Laceration: positive: Labial - Suture Suture Type: positive: Vicryl Suture Size: positive: 3-0 - Delivery Outcome Delivery Outcome: positive: Livebirth - [place] : positive: Placed in direct skin contact with mother, [place] used Cassatt sex: positive: Male - Cord Cord: positive: 3 vessels - Placenta Placenta: positive: Intact, Spontaneous - Estimated Blood Loss Estimated Blood Loss (in cc): 250 - Post Delivery Events Post Delivery Events: positive: No post delivery events - Delivery Comments (Free Text/Narrative) Delivery Comments (Free Text/Narrative): Labor: This 22yo @ 40.2wks gestation presented at 1600 on 02/26/2018 with complaints of uncomfortable contractions. SVE 2/50/-3, posterior, vertex with progression to 4/80/-2, midposition after 1 hour of ambulation. FHR pattern demonstrated a baseline of 130s - 140s in a Category I pattern with period of Category II and overall FHR tracing. Epidural placed per maternal request. AROM occurred at 0026 and was noted to be a copious amount of clear fluid. Pitocin IV administered for augmentation and titrated to a max infusion of 2. Patient progressed to c/c/-1 with spontaneous urge to push. : of viable male infant named Spencer. No nuchal cord. 's 9 and 9 at 1 and 5 min respectively at 0654 on 02/27/2018. The was placed on maternal abdomen, stimulated, dried, and placed skin to skin. The umbilical cord was allowed to stop pulsating at which time it was doubly clamped and cut by FOB. Cord blood was obtained. Placenta delivered spontaneously and intact at 0701. 3VC. Pitocin was administered via IV for hemostasis. EBL 250mL. Uterine fundus firm and there is no excessive bleeding. The perineum, vagina, and cervix were inspected and found to have minor bilateral labial lacerations with the left laceration being entirely hemostatic and the right labial laceration requiring repair with 3-[address]-1 needle in standard fashion under sterile conditions to achieve adequate hemostasis. Vaginal examination following repair performed and tissues well approximated. Family bonding well. Both mother and baby were left in stable condition and skin to skin with intention to initiate .
[2018-02-27] MEDS ORDERED: LIDOCAINE 1% 50 ML MDV TD ONE (11:44)
[2018-02-27] MEDS: HYDROCORTISONE/PRAMOXINE 10 GM PR PRN (12:44)
[2018-02-27] MEDS: DOCUSATE SODIUM 100 MG CAPSULE PO SCH ×2 (12:45→20:29)
[2018-02-27] MEDS: IBUPROFEN 800 MG TABLET PO SCH ×3 (12:45→19:06)
[2018-02-28] MEDS: IBUPROFEN 800 MG TABLET PO SCH ×4 (01:32→21:17)
[2018-02-28] MEDS ORDERED: RHO(D) IMMUNE GLOBULIN 300 MCG SYRINGE IM ONE (08:05)
--- NOTE | 2018-02-28 08:32 | PROVIDER PROGRESS NOTE ---
Subjective - Subjective Subjective: S: Bonding well with baby. States she was teary throughout the night due to difficulty with and states baby becomes frustrated at the breast. Pain well controlled with ibuprofen. Perineum comfortable. Bleeding decreasing and is light. Lyndon supportive at the bedside. O: BP 109/61, T 37.0C, RR 16, HR 78. Heart RRR w/o M/G/R, lungs CTAB, abdomen soft and nontender with fundus firm at U-2. Perineum intact. Bilateral LE's no edema. Mood is good. A: 22yo -->P1 s/p TSVD of viable male infant Right labial laceration repair - intact Hx depression and bipolar disorder P: Continue routine pp care and meds. Special attention paid to today Plan for discharge home tomorrow. Objective - Vital Signs/Intake & Output Vital Signs: Vital Signs x48h Temp Pulse Resp BP Pulse Ox 02/28/18 03:57 37 C 78 16 109/61 98 Intake & Output: Intake & Output 02/25/18 02/26/18 02/27/18 02/28/18 23:59 23:59 23:59 23:59 Intake Total 500 2240 Output Total 1150 Balance 500 1090 - Lab Results Fish Bones: 02/26/18 19:45 Other Labs: Lab Results x24hrs 02/27/18 Range/Units 11:37 Blood Type A NEGATIVE Maternal Bleed NEGATIVE (NEGATIVE) ABX Reporting Has patient been on IV antibiotics over the past 48 hours?: No
[2018-02-28] MEDS: DOCUSATE SODIUM 100 MG CAPSULE PO SCH ×2 (08:34→21:18)
[2018-03-01] MEDS: IBUPROFEN 800 MG TABLET PO SCH ×2 (02:50→09:54)
[2018-03-01] MEDS: HYDROCORTISONE/PRAMOXINE 10 GM PR PRN ×2 (02:50→09:54)
[2018-03-01] MEDS: DOCUSATE SODIUM 100 MG CAPSULE PO SCH (09:54)
--- NOTE | 2018-03-01 10:14 | Discharge Plan ---
Discharge Plan Disposition: 01 Home, Self Care Condition: Good Diet: Regular Activity Restrictions: No Restrictions Shower Restrictions: No Driving Restrictions: No Weight Bearing: Full Weight No Smoking: If you smoke, Please STOP! Call for help. Follow-up with: Denae Sharpe CNM, ARNP [Provider Admit Priv/Credential] -
[2018-03-01 10:23] VITALS: BP 114/64
--- NOTE | 2018-03-01 10:23 | PROVIDER PROGRESS NOTE ---
Subjective - Subjective Subjective: FINAL PROGRESS NOTE: S: Bonding well with baby. without difficulty and patient feels much more confident with . Bleeding decreased and is light. Pain is well controlled with ibuprofen. +BM soft. Lyndon supportive at the bedside. O: BP 118/55, T 37.0, HR 71, RR 16 Heart RRR w/o M/G/R, lungs CTAB, abdomen soft and nontender, perineum comfortable and intact, fundus firm at U-2, bilateral LE's no edema. A: 22yo -->P1 s/p TSVD of viable male PPD#2 P: Discharge home today on PPD#2. Reviewed self care and warning signs. She is planning Mirena IUD for contraception. She plans to f/ u with myself at [facility] in 1 week for visit and then in 3 weeks for routine visit. She and Lyndon both verbalized understanding and agrees to above plan. Denies further questions or concerns today. Return in 1 week or sooner PRN. Objective - Vital Signs/Intake & Output Vital Signs: Vital Signs x48h Temp Pulse Resp BP Pulse Ox 03/01/18 03:36 37 C 71 16 118/55 L 100 Intake & Output: Intake & Output 02/26/18 02/27/18 02/28/18 03/01/18 23:59 23:59 23:59 23:59 Intake Total 500 2240 Output Total 1150 Balance 500 1090 - Lab Results Fish Bones: 02/26/18 19:45
--- NOTE | 2018-03-01 14:18 | Labor Flowsheet ---
Labor Flowsheet Datetime Report Generated by CPN: 03/01/2018 14:18 Datetime: 03/01/2018 09:47 VITAL SIGNS NBP Sys/Diana/Mean (mmHg): 114 : 64 : 75 Pulse: 80 LaborFlag: Labor Datetime: 02/28/2018 11:39 SpO2 (%): 99 Datetime: 02/27/2018 06:54 STAGE 2 Pushing Progress: Descent with Pushing; with Pushing; Pushing Effectively with Contraction s Stage 2 Comments: @ 0654 Datetime: 02/27/2018 06:50 Monitor Interventions for UA: [place] Adjusted Frequency (min): 1.5-3 Quality: Strong Duration (sec): 60-90 Pattern: Normal: <= 5 Contractions in 10 Minutes Resting Tone (Palpate): Relaxed ASSESSMENT A Monitor Mode: External US FHR Baseline Rate : 155 Variability: Moderate 6-25 bpm Accelerations: None Decelerations: Variable Actions for Decelerations: sidelying with wedge during pushing Category: Category II Datetime: 02/27/2018 06:30 Comments: Pushing begun again, @ +2 descent. CNM Dell at bedside. Station: 2 Exam by: Dell Vaginal Bleeding: Normal Show Vaginal Exam Comments: Pt would now like to push; has urge to push. Datetime: 02/27/2018 06:23 MEDICATIONS Pitocin (milliunits): Increased to @ 2 Datetime: 02/27/2018 06:15 Monitor Interventions for FHR: O2, IV bolus, juice, sidelying Datetime: 02/27/2018 06:13 PATIENT CARE IV/Blood Work: IV Bolus Given ml @ 300 Datetime: 02/27/2018 06:09 Provider Reviewed Strip: Yes Strip Reviewed by: CNM Dell COMMUNICATION Communication: Provider at Bedside Notification Reason: Status Update; Patient Request Communication Comments: Pt requesting to cont with laboring down, states no urge to push at present time. Datetime: 02/27/2018 06:00 ANESTHESIA Anesthesia Plans: Epidural Anesthesia Level Check: T7 Datetime: 02/27/2018 05:49 Respirations: 20 Temperature (C): 37.3 Datetime: 02/27/2018 05:46 Oxygen Amount (LPM): 10 Oxygen Method: Non-Rebreather Datetime: 02/27/2018 05:45 Patient Position/Activity: Left Tilt Datetime: 02/27/2018 05:30 FHR Baseline Changes: No Baseline Change Datetime: 02/27/2018 05:08 I/O Interventions: Aguero Discontinued Patient Care Comments: pt requesting to rest and not push for a while Datetime: 02/27/2018 05:00 PAIN Pain Scale: 8 Pain Presence: Intermittent Pain Type: Sharp; Contraction; Pressure; Ache Pain Location: Abdomen Pain Goal: 5 Pain Relief Measures: Epidural Given (Annotations: Pt crying, states scared but not sure about what : pain, delivery of baby. pushing. Reviewing pushing with pt. CNM Dell and RNC Pamela and RN Venu at bedside. Encouraged to push but not able to focus on strong sustained pushing. Pt encouraged to g oneal self bolus of epidural infusion.) Pain Coping: Crying Plan of Care: Vaginal Delivery Labor/Induction: Pushing Methods Datetime: 02/27/2018 04:45 VAGINAL EXAM Dilatation (cm): 10.0 Effacement (%): 100 Datetime: 02/27/2018 04:35 Amniotic Fluid Color: Clear Datetime: 02/27/2018 04:20 UTERINE ACTIVITY Monitor Mode: External Pitocin Checklist: At Least 1 Acceleration of 15 bpm x 15 Seconds in 30 Minutes or Adequate Variabi lity; No More than 1 Late Deceleration Occurred in Past 30 Minutes; No More than 2 Variable Decelerat ions > 60 Seconds in Duration and decreasing >60 bpm in 30 minutes; No More than 5 Uterine Contractio ns in 10 Minutes for any 20 Minute Interval; Uterus Palpates Soft between Contractions Datetime: 02/27/2018 04:00 Stage of : Labor Datetime: 02/27/2018 02:50 Contraction Comments: occas coupling Datetime: 02/27/2018 01:05 Vibroacoustic Stim: Datetime: 02/27/2018 00:35 Membrane Status: Ruptured Membranes Ruptured Date/Time: 02/27/2018 00:36 Membranes Rupture Method: Artificial Amniotic Fluid Amount: Copious Amniotic Fluid Odor: Normal Pool: Positive Nitrazine: not done Fern: not done Cervix, Consistency: Soft Cervix, Position: Anterior Presentation 'A': Cephalic Antiemetics/Antacids: Zofran (mg) @ (Annotations: 4mg SIVP over 5min) Datetime: 02/26/2018 23:42 Epidural Procedure: Loading Dose Datetime: 02/26/2018 23:17 Temperature Route: Oral Datetime: 02/26/2018 23:13 PROCEDURE TIME OUT Procedure Type: [id number] Procedure Verify: Correct Patient Identity; Correct Side and Site are Marked; Accurate Procedure Co nsent Form; Agreement on Procedure to be Done; Correct Patient Position; Relevant Images and Results are Properly Labeled and Displayed; Addressed Need to Administer Antibiotics or Fluids for Irrigation ; Safety Precautions Based on Patient History or Medication Use Epidural Positioning: Sitting Anesthesia Comments: Time out Datetime: 02/26/2018 23:10 TEACHING Instructional Method: Verbal; Written; Patient Instructed; Family/Support Person Instructed; Verbal ized Understanding Pain Management: Epidural Datetime: 02/26/2018 23:06 Provider Notified (Name): FISHER LOBSTER Oneill Datetime: 02/26/2018 21:51 Comfort Measures: Breathing/Relaxation; Family Support Datetime: 02/26/2018 21:01 Pain Assessment Comments: Up to jacuzzi Datetime: 02/26/2018 20:24 Breath Sounds, Left: Clear and Equal Breath Sounds, Right: Clear and Equal Datetime: 02/26/2018 20:15 Unit Routine: [place] to Room; Call [place]; Bed; Visiting Policy; Waiting Areas; Security; Phon e/Cell Phone Use; Photography; Unit Personnel; Handwashing; Flu/Illness Precautions; Monitoring ; IV Pumps; Safety/Fall Risk Prevention; Diet/Nutrition Services; Bathroom Privileges; Routine Time O uts; Medications Datetime: 02/26/2018 20:00 MATERNAL ASSESSMENT Level of Consciousness: Fully Conscious DTR's/Clonus: DTRs 1+; No Clonus Headache: Denies Nausea/Vomiting: mild nausea RUQ Epigastric Pain: Denies
--- NOTE | 2018-03-03 09:53 | DISCHARGE SUMMARY ---
Physician: YAMILEX Vilchis DATE OF ADMISSION: 02/26/2018 DATE OF DISCHARGE: 03/01/2018 DIAGNOSES ON ADMISSION 1. A 22-year-old, G1, P0-0-0-0, at 40 weeks 1 day gestation by 14.6 week ultrasound. 2. Early active labor. 3. GBS negative. 4. Mild anemia in , improved with iron supplementation. DIAGNOSES ON DISCHARGE 1. A 22-year-old, G1, P1-0-0-1, status post spontaneous vaginal delivery on 02/27/2018. 2. Normal recovery. 3. Status post RhoGAM injection on 02/28/2018. BRIEF HISTORY: She is a patient of [facility], who presented on 02/26/2018, with co mplaints of uncomfortable contractions every two to three minutes. Upon evaluation, she was noted to be 4 cm dilated, 60% effaced, and a -3 station in the vertex position with a bag of merino, which wa s intact. She was allowed to ambulate for 2 hours, at which time a repeat sterile vaginal examinatio n was performed, and cervix was noted to be 4 cm dilated, 80% effaced, and a -3 station in a mid posi tion and vertex. She was augmented with Pitocin and spontaneously delivered a viable male , na med Spencer. Apgars were 9 and 9 at one and five minutes respectively on 02/27/2018. EBL 250 mL. T he perineum, vagina, and cervix were inspected and found to have a minor bilateral labial laceration with a left labial laceration being entirely hemostatic and the right labial laceration requiring rep air with 3-0 Vicryl on a CT1 needle in a standard fashion under sterile conditions to achieve adequat e hemostasis. She has been doing well in her course. She is ambulating and tolerating a regular diet. She is urinating without difficulty, and her lochia is normal. Her pain is well controlled with oral medications. She received RhoGAM on 02/27/2018. She will be discharged home today on da y #2 with instructions to take ibuprofen over the counter for pain management. She intends to follow up with myself at [facility] for support visit and then in 3 weeks for rou caleb visit. She has been given precautions to call if she has any worsening fevers, chill s, abdominal pain, increased bleeding, or foul smelling vaginal lochia. TD: 03/03/2018 08:39
== END 2018-03-01 11:00 | disposition home or self-care (01) | DRG 775 ==
LOC: WFO 14:54 → FBP 14:55 → WFO 19:14 → FBP 19:15
PROVIDERS: ADMIT Nurse Practitioner Obstetrics & Gynecology; ATTEND Nurse Practitioner Obstetrics & Gynecology
PROC: 10E0XZZ Delivery of Products of Conception, External Approach (ICD-10-PCS; principal; 2018-02-26)
PROC: 0HQ9XZZ Repair Perineum Skin, External Approach (ICD-10-PCS; 2018-02-26)
PROC: 10907ZC Drainage of Amniotic Fluid, Therapeutic from Products of Conception, Via Natural or Artificial Opening (ICD-10-PCS; 2018-02-26)
DX: O99.02 Anemia complicating childbirth (principal); O70.0 First degree perineal laceration during delivery; O26.893 Other specified pregnancy related conditions, third trimester; Z67.11 Type A blood, Rh negative; Z37.0 Single live birth; Z3A.40 40 weeks gestation of pregnancy; Z86.59 Personal history of other mental and behavioral disorders; Z87.891 Personal history of nicotine dependence
CPT/HCPCS: 36415; 83033; 85025; 86900; 86901; 99213

== ENCOUNTER 2018-09-12 08:00 | Outpatient (CLI) | payer OTHER | END 2018-09-12 23:59 | disposition home or self-care (01) | LOC: LAB.F 08:00 | PROVIDERS: ATTEND Registered Nurse | DX: Z51.81 Encounter for therapeutic drug level monitoring (principal); Z79.899 Other long term (current) drug therapy | CPT/HCPCS: 36415; 80175 ==

== ENCOUNTER 2020-07-04 16:39 | Outpatient (CLI) | payer MEDICAID ==
[2020-07-04 19:54] LABS: ALBUMIN 4.9 g/dL (3.2-5.5); ALBUMIN/GLOBULIN RATIO 1.9 (1.0-2.2); BASOPHILS % (AUTO) 0.7 %; BILIRUBIN,TOTAL 0.8 mg/dL (0.2-1.0); CREATININE 0.8 mg/dL (0.4-1.0); EOSINOPHILS # (AUTO) 0.1 10^3/uL (0.0-0.7); EOSINOPHILS % (AUTO) 1.2 %; HGB - HEMOGLOBIN 12.1 g/dL (12.0-16.0); LYMPHOCYTES # (AUTO) 2.4 10^3/uL (1.5-3.5); LYMPHOCYTES % (AUTO) 40.2 %; MEAN CORPUSCULAR HEMOGLOBIN 29.4 pg (27.0-31.0); MEAN CORPUSCULAR HGB CONC 33.2 g/dL (32.0-36.0); MEAN CORPUSCULAR VOLUME 88.8 fL (81.0-99.0); MEAN PLATELET VOLUME 10.3 fL (7.9-10.8); MONOCYTES # (AUTO) 0.3 10^3/uL (0.0-1.0); MONOCYTES % (AUTO) 4.8 %; NEUTROPHILS # (AUTO) 3.2 10^3/uL (1.5-6.6); NEUTROPHILS % (AUTO) 53.1 %; PLT - PLATELET COUNT 301 10^3/uL (130-450); RED BLOOD COUNT 4.11 10^6/uL (4.20-5.40); RED CELL DISTRIBUTION WIDTH 11.7 % (12.0-15.0); TOTAL PROTEIN 7.5 g/dL (6.7-8.2); WHITE BLOOD COUNT 6.1 x10^3/uL (4.8-10.8)
== END 2020-07-04 16:40 | disposition home or self-care (01) ==
LOC: LAB.S 16:39
PROVIDERS: ATTEND Registered Nurse
DX: D64.9 Anemia, unspecified (principal); R53.83 Other fatigue; E55.9 Vitamin D deficiency, unspecified; E28.2 Polycystic ovarian syndrome; F32.9 Major depressive disorder, single episode, unspecified; N92.0 Excessive and frequent menstruation with regular cycle; Z51.81 Encounter for therapeutic drug level monitoring
CPT/HCPCS: 36415; 80053; 80175; 84443; 85025